=== PATIENT | male | born 1965 | race Caucasian/White ===

== ENCOUNTER 2016-06-11 08:19 | Day surgery (SDC) | payer OTHER ==
[2016-06-11] MEDS ORDERED: fentaNYL 100 MCG/2 ML INJ ONE (08:38)
[2016-06-11] MEDS ORDERED: PROPOFOL/EMULSION 500 MG/50 ML BOTTLE IV ONE (08:39)
[2016-06-11] MEDS ORDERED: ROPIVACAINE HCL 20 MG/10 ML INJ EP ONE (08:41)
[2016-06-11] MEDS ORDERED: MIDAZOLAM 2 MG/2 ML VIAL ONE (08:50)
[2016-06-11] MEDS ORDERED: LIDOCAINE 1% 5 ML SDV ONE (08:51)
[2016-06-11] MEDS ORDERED: EPINEPHrine 30 MG/30 ML MDV ONE (08:56)
[2016-06-11] MEDS ORDERED: SKIN ADHESIVE (DERMABOND) 1 EACH TP ONE (08:56)
[2016-06-11] MEDS ORDERED: LIDO/BUPIVA/morphINE 15ML SYR IU ONE (09:00)
[2016-06-11] MEDS ORDERED: LIDO/BUPIVA 10ML SYR IU ONE (09:00)
[2016-06-11] MEDS ORDERED: ceFAZolin 2 GM/DEXTROSE 100 ML IV ONE (09:00)
[2016-06-11] MEDS ORDERED: LIDOCAINE/BUP/DURAMORPH 15 ML SYR IF ONE (09:27)
[2016-06-11] MEDS ORDERED: LIDOCAINE/BUPIVICAINE 10 ML SYR ONE (09:27)
[2016-06-11] MEDS ORDERED: DIAZEPAM 10 MG/2 ML SYR ONE (10:19)
[2016-06-11] MEDS ORDERED: METOCLOPRAMIDE 10 MG/2 ML VIAL ONE (10:37)
[2016-06-11] MEDS ORDERED: GLYCOPYRROLATE 0.2 MG/1 ML VIAL ONE (10:37)
[2016-06-11] MEDS ORDERED: KETOROLAC 30 MG/1 ML SDV ONE (10:37)
[2016-06-11] MEDS ORDERED: SUCCINYLCHOLINE CHLORIDE*ANESTHESIA ONLY*200 MG/10 ML SYR IVP ONE (10:37)
[2016-06-11] MEDS ORDERED: ONDANSETRON 4 MG/2 ML VIAL ONE ×2 (10:37→10:38)
[2016-06-11] MEDS ORDERED: ROCURONIUM 50 MG/5 ML VIAL ONE (10:37)
[2016-06-11] MEDS ORDERED: SUGAMMADEX SODIUM 200 MG/2 ML VIAL IVP ONE (10:37)
[2016-06-11] MEDS ORDERED: ROPIVACAINE HCL 150 MG/30 ML INJ ONE (10:37)
[2016-06-11] MEDS ORDERED: LIDOCAINE 2% 5 ML SDV ONE (10:37)
[2016-06-11] MEDS ORDERED: METOPROLOL TARTRATE 5 MG/5 ML INJ ONE (10:37)
[2016-06-11] MEDS ORDERED: CEFAZOLIN 1 GM/DEXTROSE/50 ML BAG IV ONE (12:37)
[2016-06-11] MEDS ORDERED: HYDROCODONE/APAP 5/325 TAB PO PRN (12:45)
[2016-06-11] MEDS ORDERED: OXYCODONE/APAP 5/325 TAB PO PRN (12:45)
[2016-06-11] MEDS ORDERED: ACETAMINOPHEN 325 MG TAB PO PRN (12:46)
[2016-06-11] MEDS ORDERED: ONDANSETRON DISINTEGRATING 4 MG TAB PO PRN (12:46)
[2016-06-11] MEDS ORDERED: ONDANSETRON 4 MG/2 ML VIAL IVP PRN (12:47)
--- NOTE | 2016-06-17 11:46 | GOP ---
DATE OF OPERATION: 06/11/2016 SURGEON: Clark Schwab MD RESIN COATER: TERENCE Grant. It should be noted no qualified resident was available. A bilingual office assistant was necessary to assist with the biceps tenodesis and the repair of the labrum. ANESTHESIA: General. PREOPERATIVE DIAGNOSIS: Right shoulder biceps tendinitis, posterior labral tear , and subacromial impingement. POSTOPERATIVE DIAGNOSIS: Right shoulder biceps tendinitis, anterior, inferior, and posterior labral tear, and subacromial impingement. PROCEDURE PERFORMED: 1. Arthroscopic repair of the posterior labrum, including repair of the anterior labrum. CPT code 28241. 2. Arthroscopic subacromial decompression. CPT code 80647. 3. Mini open subpectoral biceps tenodesis. CPT code 22421. ARTHROSCOPIC FINDINGS: 1. Intact articular cartilage of humeral head and glenoid. 2. Intact rotator cuff. 3. Some fraying of the biceps tendon at its attachment into the tendon. 4. Tear of the anterior labrum extending from 3 o'clock down to 6 o'clock, and extending into the posterior labral tear from [address] o'[address] the way up to just above the 9 o'clock position. 5. Moderate subacromial bursitis. 6. Downsloping anterior acromion. PATIENT POSITION: Beach chair. INDICATIONS: Patient is a 50-year-old with injury to his right shoulder at work. He developed adhesive capsulitis. He resolved most of this, but also demonstrated a tear of the posterior labrum, which he remained symptomatic from , as well as biceps tendinitis and subacromial impingement. Patient had options discussed and he desired to go ahead with the arthroscopy, a repair of the labrum, biceps tenodesis, and subacromial decompression. The patient understood the potential risks and benefits, including, but not limited to, bleeding, infection, persistent pain, stiffness, and anesthetic risks. Patient understood these and desired to proceed. DESCRIPTION OF PROCEDURE: Patient was taken to the operating room. After undergoing successful general anesthesia, the right upper extremity was prepped and draped in usual sterile manner. Anatomic landmarks were identified. The patient was examined, demonstrated really minimal posterior laxity and no anterior laxity. The right upper extremity had been prepped and draped in the usual sterile manner. Anatomic landmarks were identified. The anterior and posterior portal sites were injected with 0.25% Marcaine, 1% lidocaine. Subacromial space was injected with the same. Posterior portal was made. The arthroscope was placed in the joint. With the arthroscope in the joint, the anterior portal was made as well. The probe was placed. The findings are described above. The findings of the tear in the labrum were identified, both anteriorly and posteriorly. The first of these were fixed. Two anterior cannulas were placed, and then while viewing from the anterior superior cannula, a posterior cannula was placed as well. A separate stab incision was made for the angle of the posterior labral anchor. The labrum was elevated off. The sublabral portal was made. The tuberosity was decorticated and a series of anchors were placed posteriorly. Three anchors were placed beginning at the 6:30 position, the 7:30 , and just above the 8:30, close to the 9 o'clock position. These anchors were placed. The sutures were passed through the tissue utilizing the Spectrum suture passing device, as well as the bird beak. These provided excellent fixation of the posterior labrum. Next, while viewing from the posterior portal , the 3 anchors were placed anteriorly, one was placed at 5:30, another at 4:30 , and another at 3:30 position. These were placed without difficulty. The sutures were passed through the tissue utilizing the Spectrum suture passing device, and this was repaired. There was good repair of the labrum. Following this, the tenodesis was done. The anterior axillary incision was made. The pectoralis reflected superiorly. The biceps groove was curetted. A 2.9 mm Juggernaut suture anchor was placed. This had two #2 MaxBraid sutures. These were passed through the biceps tendon, biceps tenodesed in the groove. The biceps was cut above this. The arthroscope was placed back in the joint. Biceps was cut at its attachment on the superior labrum. Following this, the subacromial decompression was done. Bursectomy was performed, followed by the shaving of the bone. This was done beginning anterolaterally and extended from anterolateral to anteromedial with an acromionizer bur. The acromion was made flat. Following this, the area was irrigated. Portal sites closed using 3-0 nylon suture. Anterior axillary incision was closed using 3-0 Monocryl suture, followed by running 3-0 Prolene. The portal sites were closed with 3-0 nylon sutures. The subacromial space was injected with 0.25% Marcaine, 1% lidocaine, and 5 mg of Duramorph. The patient had a sterile dressing. The patient was placed in a sling with a small abduction pillow. The patient was awakened and taken to recovery room in stable condition. Sponge and needle counts were correct. PLAN: The patient will undergo physical therapy according to posterior stabilization protocol, as this was the predominant area of labrum addressed. No active biceps for 4 weeks. Will remain in the sling for 6 weeks, and will focus on protecting the biceps and protecting the posterior labrum. /[id number]/MODL MTDD
== END 2016-06-11 14:10 | disposition home or self-care (01) ==
LOC: FSGY 08:19
PROVIDERS: ATTEND Orthopaedic Surgery Sports Medicine
PROC: 0LM10ZZ Reattachment of Right Shoulder Tendon, Open Approach (ICD-10-PCS; principal; 2016-06-11 09:45)
PROC: 0MN14ZZ Release Right Shoulder Bursa and Ligament, Percutaneous Endoscopic Approach (ICD-10-PCS; principal; 2016-06-11 09:45)
PROC: 0MQ Bursae and Ligaments, Repair (ICD-10-PCS; principal; 2016-06-11 09:45)
DX: M75.41 Impingement syndrome of right shoulder (principal); M24.111 Other articular cartilage disorders, right shoulder; M75.21 Bicipital tendinitis, right shoulder
CPT/HCPCS: C1713; J0171; J0330; J0690; J1885; J2250; J2274; J2405; J2704; J2765; J2795; J3010

== ENCOUNTER 2016-07-02 09:42 | Emergency (ER) | payer OTHER ==
[2016-07-02 09:59] VITALS: RESP 16
--- NOTE | 2016-07-02 10:06 | UCPHY ---
H & P Time Seen by Provider: 07/02/16 09:46 Patient Type: New HPI/ROS: 50-year-old male presents complaining of a sense that there is intermittent discoloration in his right forearm and hand with some mild swelling. He had shoulder surgery on June 11, 2016. He was seen in Occupational Health today and referred to urgent care to have an ultrasound to rule out DVT. He is otherwise doing well and has follow-up on July 20, 2016 with his surgeon. Review of systems General no fever no chills no weakness HEENT no eye pain no eye discharge. No eye redness, no sore throat Respiratory no cough, no shortness of breath Cardiac no chest pain, no peripheral edema GI no abdominal pain, no diarrhea, no constipation, no nausea, no vomiting no flank pain, no hematuria, no dysuria Musculoskeletal no myalgias, positive joint pain Heme no easy bruising, no easy bleeding Endo no polyuria, no polydipsia Skin no rashes, no pruritus Neuro no syncope, no dizziness, no headaches Psych is no suicidal ideation, no homicidal ideation Past Medical/Surgical History: Hyperlipidemia, hypertension, CABG Social History: No alcohol, no drugs no smoking Smoking Status: Never smoked Physical Exam: 50-year-old male alert and oriented no acute distress nontoxic appearance afebrile Alert and oriented in no acute distress nontoxic appearance, afebrile Atraumatic normocephalic Neck no JVD Lungs clear to auscultation, no respiratory distress Heart regular rate and rhythm Extremities no cyanosis clubbing edema Except right arm-upper arm an area of shoulder, postsurgical ecchymoses minimal swelling no erythema no drainage Full range of motion at elbow and wrist and fingers, good capillary refill, good distal pulses No forearm or hand swelling Constitutional: Initial Vital Signs Temperature (C) 36.4 C 07/02/16 09:57 Heart Rate 71 07/02/16 09:57 Respiratory Rate 16 07/02/16 09:57 Blood Pressure 151/90 H 07/02/16 09:57 O2 Sat (%) 95 07/02/16 09:57 O2 Delivery Mode Room Air Allergies/Adverse Reactions: No Known Allergies Allergy (Verified 07/02/16 09:59) Home Medications: Medication Instructions Recorded Aspirin [Aspirin 81mg (*)] 05/29/16 Metoprolol Tartrate 05/29/16 Omeprazole 05/29/16 Simvastatin 05/29/16 Ubidecarenone [Co Q-10] 05/29/16 Multivitamin 07/02/16 Medical Decision Making ED Course/Re-evaluation: Patient is 22 days post of right shoulder repair, presents in referral from Occupational Health for ultrasound to rule out DVT. Ultrasound right upper extremity negative for DVT Impression Postoperative right shoulder and arm pain Plan Follow-up as planned with your orthopedic surgeon on July 20 Departure - Departure Disposition: Home, Routine, Self-Care Clinical Impression: Right shoulder pain Condition: Good Referrals: Danyell Orta [Primary Care Provider] - As per Instructions Stand Alone Forms: Work Comp Follow Up - PQRS PQRS Measurement: Not applicable
[2016-07-02 11:46] VITALS: TEMP 97.7
[2016-07-02 12:23] VITALS: BP 128/78; PULSE 65; O2SAT 97
== END 2016-07-02 12:21 | disposition home or self-care (01) ==
LOC: CED 09:42
DX: M25.511 Pain in right shoulder (principal); I25.10 Atherosclerotic heart disease of native coronary artery without angina pectoris; E78.5 Hyperlipidemia, unspecified; I10 Essential (primary) hypertension
CPT/HCPCS: 93971-PO; 99203-PO; G0463-PO

== ENCOUNTER → 2017-02-19 | Outpatient (CLI) | payer OTHER | LOC: FIMAGING 17:22 | PROVIDERS: ATTEND Physical Medicine & Rehabilitation | DX: S69.91XA Unspecified injury of right wrist, hand and finger(s), initial encounter (principal); Y93.9 Activity, unspecified ==